=== PATIENT | female | born 1975 | race Caucasian/White ===

== ENCOUNTER 2019-03-10 07:55 | Day surgery (SDC) | payer OTHER ==
[2019-03-07 10:54] LABS: CALC OSMOLALITY 273 mosm/kg (275-300); CALCIUM 9.4 mg/dL (8.5-10.1); CARBON DIOXIDE 24.5 mmol/L (21.0-32.0); CHLORIDE - SERUM 100 mmol/L (98-107); CREATININE - SERUM 0.8 mg/dL (0.6-1.3); GLUCOSE 150 mg/dL (74-106); POTASSIUM - SERUM 3.9 mmol/L (3.5-5.1); SODIUM 136 mmol/L (136-145); UREA NITROGEN 11 mg/dL (7-18); eGFR NON AFRICAN AMERICAN 82 mL/min (90-120)
[2019-03-07 10:58] LABS: BASOPHILS 0.2 % (0-2); EOSINOPHILS 1.1 % (0-7); HEMATOCRIT 42.7 % (36.0-48.0); HEMOGLOBIN 14.4 g/dL (12-16); IMMATURE GRANULOCYTES 0.2 % (0-5); LYMPHOCYTES 15.6 % (15-50); MCH 31.6 pg (26.0-34.0); MCHC 33.7 g/dL (31.0-37.0); MCV 93.6 fL (80.0-100.0); MEAN PLATELET VOLUME 11.6 fL (7.4-10.4); MONOCYTES 3.8 % (2-11); NEUTROPHILS 79.1 % (40-80); PLATELET COUNT 209 10x3/uL (130-400); RBC 4.56 10x6/uL (4.00-5.40); RDW 14.1 % (11.5-14.5); WBC 15.7 10x3/uL (4.8-10.8)
[2019-03-10] VITALS (14 sets, daily range): BP systolic 118–171; BP diastolic 64–99; BMI 17.0
[~2019-03-10] VITALS: Ht 236.2 cm; Wt 95.3 kg
[~2019-03-10 07:55] MED LIST: BUSPAR5 MG PO; CARAFATE1 G PO; CELEXA40 MG PO; CYMBALTA20 MG PO; DICLOFENAC SODI50 MG PO; FOLIC ACID1 MG PO; HYDROCODONE-APA1 TAB PO; METHOTREXATE2.5 MG PO; PEPCID20 MG PO; PREDNISONE5 MG PO; PRILOSEC20 MG PO; PROTONIX40 MG PO; ZANAFLEX4 MG PO
[2019-03-10 09:28] LABS: HCG URINE NEGATIVE (NEGATIVE)
--- NOTE | 2019-03-10 13:59 | NUR ---
PT RCVD VIA BED FROM RECOVERY TO ROOM 1278. PT LYING ON LEFT SIDE, C/O PAIN. PT TRANSFERS SELF OVER TO BED FROM STRETCHER. PT RATING PAIN 8/10 AT THIS TIME. LR INFUSING TO RIGHT HAND IV ORDERED. 3 LAP INCISIONS ON ABD ARE C/D WITH DERMABOND INTACT. PERIPAD IN PLACE IS C/D. ANDERSON CATH DRAINING CLEAR YELLOW URINE TO BEDSIDE DRAINAGE. SCD'S ON LE BILAT. PT STATES SHE CANNOT TAKE TORADOL FOR PAIN DUE TO NSAID ALLERGY. WILL NOTIFY
--- NOTE | 2019-03-10 14:09 | NUR ---
PT REQUESTING WATER. OXYCODONE 5MG IR ADMIN WITH WATER FOR PAIN, SEE EMAR FOR DOC. PT DENIES NAUSEA. OXYGEN REMAINS ON PT AT 2L NC. CONTINUOUS PULSE OX AND BP MONITORING IN PLACE.
--- NOTE | 2019-03-10 14:15 | NUR ---
DR BREEN PHONED WITH REPORT. ORDER RECEIVED TO D/C TORADOL, ADMIN 2MG DILAUDID IVP x1 NOW, AND NEURONTIN 300MG PO Q8H. WILL PROCEED ORDERED.
--- NOTE | 2019-03-10 14:50 | NUR ---
PT CONTINUES TO RATE PAIN 8-9/10 IN ABD AND LEGS. PT STATES LEG PAIN IS CHRONIC DUE TO R.A.. PT REQUESTING WATER, PROVIDED TO PT AND INSTRUCTED TO SIP SLOWLY AND REPORT ANY NAUSEA.
--- NOTE | 2019-03-10 14:55 | NUR ---
PT IV ALARMING LOW VOLUME. NEW BAG LR UP AT ORDERED RATE, SEE EMAR FOR DOC. PT ALSO ADMIN ORDERED NEURONTIN PO, SEE EMAR FOR DOC.
--- NOTE | 2019-03-10 15:00 | NUR ---
PT PROVIDED WITH PAULINA PER REQUEST, STATES HER PAIN IS IMPROVING, DENIES NAUSEA. 120ML CLEAR YELLOW URINE EMPTIED FROM UROMETER. WILL CONT TO MONITOR.
--- NOTE | 2019-03-10 16:55 | NUR ---
[facility] DELIVERS CLEAR LIQUID DINNER TRAY. PT POSITIONED TO SITTING HIGHER UP IN BED TO EAT. PT REPORTS DECREASE IN PAIN, DENIES NAUSEA. 100ML CLEAR YELLOW URINE NOTED IN UROMETER. PT REMOVES OXYGEN PER SELF, STATES IT IS ITCHING HER NOSE AND SHE NEEDS A BREAK. PT ENCOURAGED IF SHE IS REFUSING TO WEAR OXYGEN THEN SHE NEEDS TO DEEP BREATHE ENOUGH TO KEEP O2 SATS UP. PT VERBALIZES UNDERSTANDING, DEEP BREATHES INSTRUCTED. O2 SAT UP TO 95% AT BEDSIDE. WILL CONT TO MONITOR.
--- NOTE | 2019-03-10 18:15 | NUR ---
PT ADMIN TYLENOL ORDERED, SEE EMAR FOR DOC. PT REQUESTING SCD'S OFF OR SHE WILL NEED FLEXERIL TO DEAL WITH MUSCLE CRAMPS IN LEGS. DR BREEN PHONED AND ORDER RECEIVED FOR 10MG FLEXERIL PO Q8H PRN MUSCLE PAINS. WILL ADMIN ORDERED.
--- NOTE | 2019-03-10 18:20 | NUR ---
PHARMACY PHONED AND FLEXERIL REQUESTED TO BE SENT TO UNIT FOR PT.
--- NOTE | 2019-03-10 18:55 | NUR ---
PHARMACY DELIVERS FLEXERIL TO UNIT. PT ADMIN ORDERED, SEE EMAR FOR DOC. 325ML CLEAR YELLOW URINE EMPTIED FROM UROMETER. PT REQUESTING JELLO, WILL SEE IF STOCKED FROM [facility] YET REQUESTED. SRUx2, CL IN REACH. SPOUSE AT BEDSIDE. WILL CONT TO MONITOR. LIGHTS IN ROOM DIMMED FOR REST.
--- NOTE | 2019-03-10 19:30 | NUR ---
SHIFT ASSESSMENT COMPLETED, PT ALERT AND RESPONSIVE ON ENTRY TO ROOM, RATES POST-OP PAIN A 4/10 ON NUMERIC PAIN SCALE,REVIEWED PAIN GOALS AND EXPECTATIONS FOLLOWING SURGERY. SKIN WARM AND DRY, COLOR PINK, SCLERA CLEAR, CONJUNCTIVAE PINK BILATERALLY, RESP EVEN AND UNLABORED, LUNGS CTAB TO LUNG MARCUS WITH VESICULAR SOUNDS NOTED. HEART RRR WITHOUT AUDIBLE MURMUR. ABD SOFT NONDISTENDED, AUSUCLATED WITH DECREASED BOWEL SOUNDS TO ALL QUADRANTS, ABD MILDLY TENDER ON ASSESSMENT, ANDERSON CATHETER IN PLACE TO GRAVITY DRAINAGE WITH APPROXIMATELY 100 IN CHAMBER TO COUNT BY 2100 ON Q2 HOUR OUTPUTS, PERICARE PROVIDED, PERIPAD WITHOUT ANY DRAINAGE/DISCHARGE NOTED. SCDS IN PLACE AND WORKING WITHOUT DIFFICULTY. PEDAL PULSES STRONG/=/+2 BILATERALLY, NEGATIVE EMMA'S SIGN BILATERALLY. IV PATENT TO RIGHT HAND WITH LR INFUSING PER IVAC PUMP WITHOUT DIFFICULTY, SITE BENIGN. USING ABD PILLOW TO SPLINT, TCDB ENCOURAGED AND DEMONSTRATED. REVIEWED POC WITH PT, PT STATES UNDERSTANDING. SIGNIFICANT OTHER AT BS FOR SUPPORT. CALL LIGHT IN EASY REACH, BED IN LOW POSITION, BRAKES LOCKED, SIDE RAILS UP X2. CONTINUE TO MONITOR.
--- NOTE | 2019-03-10 20:15 | NUR ---
ON DETAILED REVIEW OF PT EMAR, NOTED ANCEF 2GM NOT SHOWING IN [facility] AND NOT AVAILABLE FOR ADMINISTRATION. NOTIFIED PHARMACY AND SPOKE WITH MICHELLE WHO STATES WILL REVIEW AND FOLLOW UP.
--- NOTE | 2019-03-10 21:00 | NUR ---
PT C/O ABD PAIN RATES 5 OR 6 ON NUMERIC PAIN SCALE 0/10. OXYCODONE PRN GIVEN WITH SIPS WATER. IV ANTIBIOTIC HUNG AND INFUSING PER IVAC DELIVERED PER PHARMACY JUST NOW. LR 1000ML HUNG AND INFUSING PER IVAC WELL. LEMON SANTO DOMINGO SODA PROVIDED UPON REQUEST, EMPTIED 225ML YELLOW URINE FROM COLLECTION CHAMBER AND RESET TO GRAVITY DRAINAGE. DENIES OTHER NEEDS AT THIS TIME. CALL LIGHT IN EASY REACH.
--- NOTE | 2019-03-10 21:57 | NUR ---
PT REQUESTS SLEEP MED. AMBIEN 10MG PO GIVEN WITH SIPS WATER. TOLERATING PO WELL, PT REPORTS BURPING, NO FLATUS YET. REVIEWED PLAN OF CARE, PT STATES UNDERSTANDING. VSS. AFEBRILE. CALL LIGHT IN EASY REACH, CONTINUE TO MONITOR.
--- NOTE | 2019-03-10 22:30 | NUR ---
ROUNDS COMPLETED, PT RESTING WITH EYES CLOSED, RESP EVEN AND UNLABORED, CALL LIGHT IN EASY REACH.
--- NOTE | 2019-03-10 23:09 | NUR ---
ROUNDS COMPLETED, URINE OUTPUT CHECKED. 400ML CLEAR YELLOW URINE EMPTIED FROM CHAMBER AND RESET TO GRAVITY DRAINAGE, PT RESP EVEN AND UNLABORED, DENIES OTHER NEEDS AT THIS TIME. CONTINUE TO MONITOR.
--- NOTE | 2019-03-10 23:28 | NUR ---
SCHEDULED MEDS GIVEN WITH SIPS OF WATER. TCDB ENCOURAGED AND PT DEMONSTRATES.
--- NOTE | 2019-03-11 01:07 | NUR ---
ROUNDS COMPLETED. EMPTIED ANDERSON CATHETER, CHAMBER WITH 150ML URINE IN PAST TWO HOURS. PT EYES CLOSED, RESP EVEN AND UNLABORED, NO PHYSICAL S/SX PAIN OBSERVED AT THIS TIME. CALL LIGHT WITHIN EASY REACH, BED IN LOW POSITION, BED BRAKES LOCKED, SIDE RAILS UP X2, O2 SAT 98% ON RA. CONTINUE TO MONITOR.
--- NOTE | 2019-03-11 03:10 | NUR ---
PT RESTING WITH EYES CLOSED ON ROUNDS, RESP EVEN AND UNLABORED, EMPTIED 200ML URINE FROM CHAMBER FOR Q2 HR OUTPUT.
--- NOTE | 2019-03-11 04:33 | NUR ---
ROUNDS COMPLETED, PT RESTING WITH EYES CLOSED ON ENTRY TO ROOM, ROUSES TO VERBAL STIMULI, VSS, AFEBRILE, SCHEDULED CEFAZOLIN 2GM/50ML D5W HUNG AND INFUSING TO RIGHT HAND PIV SITE WITHOUT DIFFICULTY VIA IVAC PUMP. EMPTIED 300 ML CLEAR YELLOW URINE FROM ANDERSON COLLECTION CHAMBER AND RESET TO GRAVITY DRAINAGE. HOB ELEVATED 30 DEGREES, DENIES NEEDS OR CONCERNS, CALL LIGHT IN EASY REACH. CONTINUE TO MONITOR.
[2019-03-11 04:34] VITALS: BP 109/58
[2019-03-11 04:44] VITALS: BP 143/98; Ht 236.2 cm; Wt 95.3 kg
--- NOTE | 2019-03-11 05:35 | NUR ---
PT ADMINISTERED SCHEDULED TYLENOL 1000MG PO WITH SIPS WATER, STATES "I'M ABLE TO TURN ON MY OWN AND IT DOESN'T HURT LIKE IT WAS". TCDB ENCOURAGED, EMPTIED 200ML URINE FROM ANDERSON CHAMBER AND RESET TO GRAVITY DRAINAGE. IV OF LR INFUSING AT 125ML/HR TO RIGHT PIV SITE WITHOUT DIFFICULTY. CONTINUE TO MONITOR.
[2019-03-11 07:43] VITALS: BP 108/62
--- NOTE | 2019-03-11 07:48 | NUR ---
DR BREEN HERE TO SEE PT.
--- NOTE | 2019-03-11 08:34 | NUR ---
IV CHANGED TO SALINE LOCK- FLUSHED WITH NS. ANDERSON CATH REMOVED POST BULB DEFLATED- 100CC URINE IN CATH.
--- NOTE | 2019-03-11 10:43 | NUR ---
AMBULATORY TO BATHROOM. VOIDED INTO CONTAINER- NOTED SMALL AMT- 50CC OR SO- PT STATES THAT SHE FORGOT THAT SHE HAD A PAD ON AND SOME OF THE URINE WENT INTO PAD.
--- NOTE | 2019-03-11 10:49 | NUR ---
AMBULATES IN HALLWAY- TOLERATED WELL. DENIES WANTING TO SHOWER AT THIS TIME.
--- NOTE | 2019-03-11 12:27 | NUR ---
UP TO BATHROOM- VOIDED 200CC. DENIES NEEDS.
--- NOTE | 2019-03-11 13:06 | NUR ---
DR BREEN IN UNIT- NEW ORDERS RECEIVED.
--- NOTE | 2019-03-11 13:15 | NUR ---
POC DISCUSSED WITH PT. PT STATES SHE WOULD LIKE PAIN MEDICATION CO PAIN IN ABD AND KNEES. STATES THAT SHE IS PASSING GAS. RATES PAIN A 6 ON SCALE OF 0-10.
--- NOTE | 2019-03-11 14:00 | NUR ---
VOIDED 500CC URINE IN CONTAINER.
[2019-03-11] MEDS ORDERED: PERCOCET 7.5/321 TAB PO (14:16)
[2019-03-11] MEDS ORDERED: NEURONTIN 300300 MG PO (14:18)
--- NOTE | 2019-03-11 14:35 | NUR ---
PT IS DRESSED AND STATES SHE IS READY TO GO HOME. DISCHARGE INST VERBAL AND WRITTEN GIVEN. PRESCRIPTION X1 WITH PT MED REC GIVEN. DRUG DATA INFO SHEETS GIVEN. SEVERAL DISCHARGE INST SHEETS GIVEN. PT HEALTH SUMMARY GIVEN. PT STATES UNDERSTANDING AND DENIES QUESTIONS.
--- NOTE | 2019-03-11 14:40 | NUR ---
TO AUTO VIA W/C.
--- NOTE | 2019-03-13 13:22 | OP ---
PATIENT NAME: LAVERN MURPHY MEDICAL RECORD: [id number] :73 LOCATION:D[facility] ADMISSION DATE: SURGEON: FILEMON BREEN MD DATE OF OPERATION: 03/10/2019 PREOPERATIVE DIAGNOSIS: Uterine prolapse. POSTOPERATIVE DIAGNOSIS: Uterine prolapse. PROCEDURES: 1. Laparoscopically assisted vaginal hysterectomy. 2. Bilateral salpingectomy. 3. Uterine vault suspension. SURGEON: Filemon Breen MD VALVE TECHNICIAN: Cece Chew. ANESTHESIOLOGIST: Dr. Mccracken. ANESTHETIC: General. FINDINGS: Uterus prolapses to the hymenal ring. The tubes and ovaries are unremarkable with a retroverted uterus. Uterus is enlarged consistent with adenomyosis. Vaginal vault is unremarkable. Second look laparoscopy at the close of this procedure with adequate hemostasis. SPECIMENS REMOVED: Bilateral tubes and uterus morcellated. SPECIMEN DISPOSITION: All specimens for permanent with pathology. ESTIMATED BLOOD LOSS: Less than or equal to 250 cc. FLUIDS: 1900 cc lactated Ringer's. URINE OUTPUT: 75 cc of clear urine. COMPLICATIONS: None. DRAINS: Navarro to gravity. INDICATIONS: The patient is a 43-year-old female with uterine prolapse. The patient has been consented for laparoscopically assisted vaginal hysterectomy with both tubes and any indicated procedure. DESCRIPTION OF PROCEDURE: After informed written consent was assured, the patient was taken to the operating room where anesthetic was obtained without difficulty. The patient was now prepped and draped in the usual sterile fashion. The legs are in Yellofin stirrups. An incision was made in the umbilicus to accommodate a 5-mm trocar, which was inserted without difficulty and pneumoperitoneum established. With the patient in Trendelenburg position ,accessory ports were placed in the left and right lower quadrants. Through the left hand port, a grasper was used to elevate the tube of the right side. The tissues underneath the tube were compressed, coagulated, and . This dissection was carried out underneath the tube across the uterine ovarian OPERATIVE REPORT [id number] LAVERN MURPHY ligaments and round ligaments. The anterior leaf of the broad ligament was opened and the bladder flap developed to the midline. This was repeated on the contralateral side. The left tube was elevated from the right and again the tube removed from its attachments to the pelvis with Thunderbeat coagulation cutter. The dissection was carried over the uteroovarian ligament and round ligaments. The anterior leaf of the broad ligament was opened and the bladder flap fully developed. The legs were now positioned for the vaginal portion of this case. With a weighted speculum introduced into the vagina, the cervix was elevated and the posterior cul-de-sacs entered sharply. The peritoneum was tacked to the mucosa. A long billed weighted speculum was inserted and uterosacral ligaments were clamped, cut and tied bilaterally. Bovie cautery was used to mobilize the mucosa off at the vesicouterine junction. The Baldomero-[place] clamps were now used to serially clamp, cut and tie the cardinal ligaments until the level of previous dissection was reached bilaterally. Upon conclusion of the vaginal dissection, uterine volume was obscuring adequate visualization. A scalpel was used to morcellate the uterus to better assess the pedicles. After morcellation and the final pedicles were developed, [id number] stitches were applied to obtain hemostasis bilaterally. The peritoneum anteriorly was tacked to the mucosa with 3-0 Vicryl. A short billed weighted speculum was introduced in the vagina and the uterosacral ligaments were grasped with Allis clamps approximately 2-3 cm from the vaginal cuff. A bridge of tissue was developed with Ethibond 3 cm from the vaginal cuff. Once this condensation of tissue was developed with 2 interrupted Ethibond stitches, a piece of Vicryl was passed from the posterior cuff through the complex and backed out through the cuff into the vagina. The cuff was now closed anterior to posteriorly. After this had been completed, the aforementioned Vicryl stitch that includes the uterosacral bridge was now tied securing the vaginal vault to ligament support. Second look laparoscopy revealed adequate hemostasis. The pelvis was irrigated and irrigant removed. Pneumoperitoneum was released as the accessory trocars were removed and primary trocar was now removed after release of complete pneumoperitoneum. The trocar sites were closed with a subcuticular stitch and Dermabond was applied. Sponge, lap, and needle counts correct times 2 at the close of this procedure. TRANSINT:[id number] Voice Confirmation ID: [id number] DOCUMENT ID: [id number] FILEMON BREEN MD at 1329 CC: [id number] DICTATION DATE: 03/10/19 1988 [facility]: 03/10/19 1433 [facility] 03/11/19 [facility] [address] [place] [address]
--- NOTE | 2019-03-13 13:22 | DS ---
PATIENT:LAVERN MURPHY :73 MEDICAL RECORD: [id number] DISCHARGE SUMMARY ADMISSION DATE: 03/10/19 DISCHARGE DATE: 03/11/19 DATE OF ADMISSION: 03/10/2019 DATE OF DISCHARGE: 03/11/2019 ADMISSION DIAGNOSIS: Dysfunctional uterine bleeding. DISCHARGE DIAGNOSIS: Dysfunctional uterine bleeding. PROCEDURE: Laparoscopically assisted vaginal hysterectomy with bilateral salpingectomy. ATTENDING: Julieth Judd MD HISTORY OF PRESENT ILLNESS: See the H&P in the chart. SUMMARY OF HOSPITALIZATION: The patient was admitted to the hospital, underwent the procedure without difficulty. At the time of discharge, she is doing well, tolerating regular diet with flatus and voiding freely. She will be discharged home on Percocet 7.5 mg. Instructions to take 1 every 6 hours as needed for [id number] pain. The patient has also been given Neurontin 300 mg every 8 hours for the next 3 days. The patient will follow up in 2 weeks at the [facility] and has been given standard postoperative precautions. TRANSINT:[id number] Voice Confirmation ID: [id number] DOCUMENT ID: [id number] JULIETH JUDD MD at 1322 CC: [id number] DICTATION DATE: 03/11/19 1622 PROFESSOR OF PATHOLOGY: 03/12/19 0709 [facility] 03/11/[address] [address]
== END 2019-03-11 14:40 | disposition home or self-care (01) ==
LOC: D.OPS 07:55 → D.LD 13:38 → D.OPS 03-11 14:40
PROVIDERS: ATTEND Obstetrics & Gynecology
DX: N81.4 Uterovaginal prolapse, unspecified (principal); N85.4 Malposition of uterus; N72 Inflammatory disease of cervix uteri; Z01.812 Encounter for preprocedural laboratory examination

== ENCOUNTER → 2019-04-11 12:31 | Outpatient (CLI) | payer OTHER ==
[~2019-04-11 12:31] MED LIST changes: +NEURONTIN 300300 MG PO; +PERCOCET 7.5/321 TAB PO
[2019-04-11 13:00] VITALS: BP 139/78; BMI 17.4
== END | disposition home or self-care (01) ==
LOC: D.OPS 12:31
PROVIDERS: ATTEND Family Medicine
DX: K56.41 Fecal impaction (principal)